=== PATIENT | male | born 1955 | race African-American/Black ===

== ENCOUNTER 2018-11-19 23:16 | Emergency (ER) | payer OTHER, SELFPAY | END 2018-11-19 23:30 | disposition home or self-care (01) | LOC: ERS 23:16 | DX: K02.9 Dental caries, unspecified (principal); F17.210 Nicotine dependence, cigarettes, uncomplicated; I10 Essential (primary) hypertension; F41.9 Anxiety disorder, unspecified | CPT/HCPCS: 99282 ==